=== PATIENT | female | born 1990 | race Caucasian/White ===

== ENCOUNTER 2016-10-31 14:57 | Emergency (ER) | payer SELFPAY ==
[~2016-10-31] VITALS: Ht 170.2 cm; Wt 113.4 kg
--- NOTE | 2016-10-31 15:13 | ED Lower Extremity ---
General Chief Complaint: Lower Extremity Stated Complaint: FALL/RIGHT ANKLE INJURY Source: patient Exam Limitations: no limitations History of Present Illness Time seen by provider: 15:11 Initial Comments To ER with pain over the right lateral malleolus of the ankle that began about one hour ago when she was walking down the stairs wearing flip-flops he inverted the right ankle or popping sensation and has pain and swelling. No other injuries. Onset: just prior to arrival Severity: moderate Pain/Injury Location: right ankle Method of Injury: unknown, twisted Modifying Factors: Worse With Movement Allergies and Home Medications Home Medications Fluoxetine HCl 40 Mg Capsule, 40 MG PO DAILY, (Reported) Metformin HCl 500 Mg Tablet, 500 MG PO DAILY, (Reported) [ Control] , Unknown Dose PO DAILY, (Reported) Constitutional: see HPI EENTM: see HPI Respiratory: no symptoms reported Cardiovascular: no symptoms reported Genitourinary: no symptoms reported Musculoskeletal: see HPI Skin: no symptoms reported Psychiatric/Neurological: No Symptoms Reported Past Hzcwjth-Xjvzhv-Yqxgbz Hx Patient Social History Recent Foreign Travel: No Contact w/Someone Who Travel: No Physical Exam Vital Signs Vital Sign - Last 12Hours 10/31/16 15:05 Temp 98.3 Pulse 71 Resp 18 B/P (MAP) 138/63 Pulse Ox 100 Capillary Refill : General Appearance: WD/WN, no apparent distress HEENT: PERRL/EOMI, normal ENT inspection Neck: non-tender, full range of motion Respiratory: no respiratory distress, no accessory muscle use Gastrointestinal: non tender, soft Hips: bilateral hip non-tender, bilateral hip normal inspection, bilateral hip normal range of motion Legs: bilateral leg non-tender, bilateral leg normal inspection, bilateral leg normal range of motion Knees: bilateral knee non-tender, bilateral knee normal inspection, bilateral knee normal range of motion Ankles: right ankle pain, right ankle soft tissue tenderness, right ankle swelling, right ankle other (pain and swelling over the lateral malleolus) Feet: bilateral foot non-tender, bilateral foot normal inspection, bilateral foot normal range of motion Neurologic/Psychiatric: alert, normal mood/affect, oriented x 3 Skin: normal color, warm/dry Progress/Results/Core Measures Results/Orders My Orders Orders - SUZANNE SOLORIO APRN Ankle, Right, 3 Views (10/31/16 15:09) Vital Signs/I&O Vital Sign - Last 12Hours 10/31/16 15:05 Temp 98.3 Pulse 71 Resp 18 B/P (MAP) 138/63 Pulse Ox 100 Diagnostic Imaging Diagonstic Imaging: Xray Comments NAME: CARLOS ESQUIVEL [facility] REC#: [id number] PT STATUS: REG ER : 1990 PHYSICIAN: SUZANNE SOLORIO APRN ADMIT DATE: 10/31/16/ER Draft Date of Exam:10/31/16 ANKLE, RIGHT, 3 VIEWS INDICATION: Tripped. Pain. EXAMINATION: Multiple views of the right ankle were obtained. FINDINGS: There is marked swelling over the lateral malleolus. There is question of a tiny avulsion injury along the talus or the talofibular ligament. No evidence of fibular fracture. Ankle mortise is in good alignment. Medial malleolus appears normal. Talar plafond show smooth surface. IMPRESSION: Marked soft tissue swelling, laterally, with question of avulsion of the talofibular ligament. Dictated on workstation # [id number] Dict: 10/31/16 1523 Trans: 10/31/16 1528 [facility] [phone] Interpreted by: DEVEN MOREIRA MD Electronically signed by: Departure Impression Impression: Primary Impression: Disorder of ligament, right ankle Disposition: 01 HOME, SELF-CARE Condition: Stable Departure-Patient Inst. Decision time for Depature: 15:31 Referrals: HAILEE MCCLELLAN MD, DAVID G Chelsea [facility] (PCP/Family) Primary Care Physician MOHSEN CHAVIS MD,VALENTINO LAUREANO,DM OVERTON MD DO Patient Instructions: Ankle Sprain (DC) Add. Discharge Instructions: 1. Wear the ankle brace when you're up moving around 2. Call an orthopedic surgeon of your choosing on Thursday for a follow-up appointment 3. Keep the ankle elevated as much as possible for the next 48 hours. Keep an ice pack on the right ankle for 30 minutes every 2 hours for the next 48 hours at least as much as you can. If you have pain when bearing weight on the right ankle, use the crutches when walking 4. Tylenol and Motrin for pain in addition to the prescribed pain medication. All discharge instructions reviewed with patient and/or family. Voiced understanding. Scripts Hydrocodone/Acetaminophen ([place] 5-325 Tablet) 1 Each Tablet 1 EACH PO Q4H Y for PAIN-MODERATE, #10 TAB Prov: SUZANNE SOLORIO APRN 10/31/16 SUZANNE SOLORIO APRN Oct 31, 2016 15:13
[2016-10-31] MEDS ORDERED: BIRTH CONTROL PO (15:17)
[2016-10-31] MEDS ORDERED: FLUO40CA12 PO (15:17)
[2016-10-31] MEDS ORDERED: METF500T4 PO (15:17)
--- NOTE | 2016-10-31 15:29 | Diagnostic Imaging Report ---
INDICATION: Tripped. Pain. EXAMINATION: Multiple views of the right ankle were obtained. FINDINGS: There is marked swelling over the lateral malleolus. There is question of a tiny avulsion injury along the talus or the talofibular ligament. No evidence of fibular fracture. Ankle mortise is in good alignment. Medial malleolus appears normal. Talar plafond show smooth surface. IMPRESSION: Marked soft tissue swelling, laterally, with question of avulsion of the talofibular ligament. Dictated by: Dictated on workstation # [id number]
[2016-10-31] MEDS ORDERED: HYDR-757 PO (15:33)
[2016-10-31 15:55] VITALS: BP 138/63
== END 2016-10-31 15:55 | disposition home or self-care (01) ==
LOC: EDUNIT# 14:57 → ER 15:01
DX: S93.401A Sprain of unspecified ligament of right ankle, initial encounter (principal); X50.9XXA Other and unspecified overexertion or strenuous movements or postures, initial encounter; Y92.009 Unspecified place in unspecified non-institutional (private) residence as the place of occurrence of the external cause; Y99.8 Other external cause status
CPT/HCPCS: 73610; 99283

== ENCOUNTER 2017-01-11 12:26 | Emergency (ER) | payer SELFPAY ==
[~2017-01-11] VITALS: Ht 170.2 cm; Wt 113.4 kg
[~2017-01-11 12:26] MED LIST changes: -DOXY100C2 PO; -METR500T PO; -[UNRECOGNIZED DRUG - OTHER] PO
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
[2017-01-11] MEDS ORDERED: LIDOCAINE 1% INJ 20 ML (XYLOCAINE) VIAL INJ ONE (13:00)
[2017-01-11] MEDS ORDERED: cefTRIAXone 1 GM (ROCEPHIN) VIAL IM ONE (13:00)
[2017-01-11] MEDS ORDERED: DOXY100C2 PO (13:04)
[2017-01-11] MEDS ORDERED: AZITHROMYCIN 250 MG TAB (ZITHROMAX) PO ONE (13:08)
[2017-01-11] MEDS ORDERED: DOXYCYCLINE 100 MG (VIBRAMYCIN) TABLET PO SCH (13:15)
[2017-01-11 13:28] VITALS: BP 145/72
[2017-01-12] MEDS ORDERED: AZITHROMYCIN 250 MG TAB (ZITHROMAX) PO SCH (09:00)
--- OUTSIDE RECORDS SUMMARY | 2017-01-14 13:24 | XMS REPORT ---
Author Author MARGARETTE HILL [facility] eClinicalWorks Address Unknown Phone Unavailable Care Team Providers Care Test Desk Supervisor Name Role Phone MARGARETTE HILL Unavailable Allergies, Adverse Reactions, Alerts Substance Reaction Event Type Rocephin Info Not Available Drug Allergy Cephalexin Info Not Available Drug Allergy Vancomycin Info Not Available Drug Allergy Problems Problem Type Condition Code Onset Dates Condition Status Assessment History of insulin resistance Z86.39 Active Assessment Unprotected sexual intercourse Z72.51 Active Assessment Surveillance of contraceptive pill Z30.41 Active Assessment History of abnormal cervical Pap smear Z87.898 Active Assessment Acute pharyngitis, unspecified J02.9 Active Problem Irregular menses N92.6 Active Problem Surveillance of contraceptive pill Z30.41 Active Problem Obesity, unspecified E66.9 Active Assessment Vaginal discharge N89.8 Active Assessment Routine screening for STI (sexually transmitted infection) Z11.3 Active Problem History of insulin resistance Z86.39 Active Assessment Well woman exam Z01.419 Active Medications Medication Code System Code Instructions Start Date End Date Status Dosage Apri [facility] [address]-78 0.15-30 MG-MCG Orally Once a day 1 tablet metformin NDC 0 500 mg orally Once a day October 09, 2014 take 1 tablet by Oral route 1 time per day citalopram NDC 0 20 mg September 29, 2014 1 tablet by Oral route 1 time per day Procedures Procedure Coding System Code Date TRICHOMONAS VAGIN, DIR PROBE CPT-4 98513 Jun 20, 2015 CULTURE, BACTERIA, OTHER CPT-4 32104 Jun 20, 2015 No Charge CPT-4 19822 Jun 20, 2015 STREP A ASSAY W/OPTIC CPT-4 64621 Jun 20, 2015 URINE TEST CPT-4 03548 Jun 20, 2015 Preventive Care Est Pt. Age 18-39 CPT-4 54263 Jun 20, 2015 Vital Signs Date/Time: Jun 20, 2015 Temperature 98.1 F Weight 242.0 lbs Height 67 in BMI 37.90 Index Blood Pressure Diastolic 68 mmHg Blood Pressure Systolic 112 mmHg Cardiac Monitoring Heart Rate 76 bpm Results Name Result Date Reference Range Unit Abnormality Flag TEST, URINE (IN HOUSE) ----RESULTS negative [id number] ----Lot # [id number] ----Control + [id number] ----Exp date 20150620 STREP A (IN HOUSE) ----Exp date 20150620 ----Control + [id number] ----Lot # [id number] ----STREP A Negative [id number] Summary Purpose eClinicalWorks Submission
--- OUTSIDE RECORDS SUMMARY | 2017-01-14 13:24 | XMS REPORT ---
Author Author RENEE WILLETT Organization eClinicalWorks Address Unknown Phone Unavailable Care Team Providers Care Bulbs Farmworker Name Role Phone RENEE WILLETT CP Unavailable Allergies No Known Allergies Problems Problem Type Condition Code Onset Dates Condition Status Problem Irregular menses N92.6 Active Problem Surveillance of contraceptive pill Z30.41 Active Problem Obesity, unspecified E66.9 Active Problem History of insulin resistance Z86.39 Active Medications No Known Medications Results No Known Results Summary Purpose eClinicalWorks Submission
--- OUTSIDE RECORDS SUMMARY | 2017-01-14 13:24 | XMS REPORT ---
Author Author SANTOS CHAVES eClinical[employer] Address Unknown Phone Unavailable Care Team Providers Care Alumni Relations Manager Name Role Phone SANTOS CHAVES CP Unavailable Allergies, Adverse Reactions, Alerts Substance Reaction Event Type Rocephin Info Not Available Drug Allergy Cephalexin Info Not Available Drug Allergy Vancomycin Info Not Available Drug Allergy Problems Problem Type Condition Code Onset Dates Condition Status Assessment History of chlamydia Z86.19 Active Problem Irregular menses N92.6 Active Problem Surveillance of contraceptive pill Z30.41 Active Problem Obesity, unspecified E66.9 Active Assessment History of insulin resistance Z86.39 Active Assessment Abnormal cervical Papanicolaou smear, unspecified abnormal pap finding R87.619 Active Problem History of insulin resistance Z86.39 Active Assessment Surveillance of contraceptive pill Z30.41 Active Medications Medication Code System Code Instructions Start Date End Date Status Dosage Apri [facility] [address]-62 0.15-30 MG-MCG Orally Once a day 1 tablet MetFORMIN HCl ER [facility] [address]-11 500 MG Orally Once a day November 02, 2015 1 tablet with evening meal citalopram NDC 0 20 mg September 29, 2014 1 tablet by Oral route 1 time per day Procedures Procedure Coding System Code Date No Charge CPT-4 34677 November 02, 2015 TRICHOMONAS ASSAY W/OPTIC CPT-4 74276 November 02, 2015 SPECIMEN HANDLING CPT-4 46643 November 02, 2015 URINE TEST CPT-4 00654 November 02, 2015 Office Visit, Est Pt., Level 3 CPT-4 70175 November 02, 2015 Vital Signs Date/Time: November 02, 2015 Temperature 98.3 F Weight 241.9 lbs Height 67 in BMI 37.88 Index Blood Pressure Diastolic 75 mmHg Blood Pressure Systolic 114 mmHg Cardiac Monitoring Heart Rate 72 bpm Results Name Result Date Reference Range Unit Abnormality Flag TEST, URINE (IN HOUSE) ----RESULTS Negative [id number] ----Lot # [id number] ----Control + 20151102 ----Exp date 20151102 TRICHOMONAS (IN HOUSE) ----Exp date 20151102 ----Control + [id number] ----Lot # [id number] ----TRICHOMONAS Negative [id number] Summary Purpose eClinicalWorks Submission
--- OUTSIDE RECORDS SUMMARY | 2017-01-14 13:24 | XMS REPORT ---
Author Author SANTOS CHAVES [facility] eClinicalWorks Address Unknown Phone Unavailable Care Team Providers Care Trouble Locater Name Role Phone SANTOS CHAVES CP Unavailable Allergies, Adverse Reactions, Alerts Substance Reaction Event Type Rocephin Info Not Available Drug Allergy Cephalexin Info Not Available Drug Allergy Vancomycin Info Not Available Drug Allergy Problems Problem Type Condition Code Onset Dates Condition Status Problem Other abnormal Papanicolaou smear of vagina and vaginal HPV 795.19 Active Problem Obesity, unspecified 278.00 Active Problem Routine general medical examination at health care facility V70.0 Active Problem Irregular menstrual cycle 626.4 Active Assessment Nose injury, initial encounter S09.92XA Active Medications Medication Code System Code Instructions Start Date End Date Status Dosage Enskyce NDC [address]-82 0.15-30 MG-MCG Orally Once a day 1 tablet citalopram NDC 0 20 mg September 29, 2014 1 tablet by Oral route 1 time per day metformin NDC 0 500 mg October 09, 2014 take 1 tablet by Oral route 1 time per day Procedures Procedure Coding System Code Date Office Visit, Est Pt., Level 3 CPT-4 92669 May 30, 2015 Vital Signs Date/Time: May 30, 2015 Temperature 98.6 F Weight 237.7 lbs Height 67 in BMI 37.23 Index Blood Pressure Diastolic 74 mmHg Blood Pressure Systolic 118 mmHg Cardiac Monitoring Heart Rate 72 bpm Results No Known Results Summary Purpose eClinicalWorks Submission
--- OUTSIDE RECORDS SUMMARY | 2017-01-14 13:24 | XMS REPORT ---
Author Author MARGARETTE HILL [facility] eClinicalWorks Address Unknown Phone Unavailable Care Team Providers Care Electromechanisms Design Drafter Name Role Phone MARGARETTE HILL Unavailable Allergies No Known Allergies Problems Problem Type Condition Code Onset Dates Condition Status Problem Irregular menses N92.6 Active Problem Surveillance of contraceptive pill Z30.41 Active Problem Obesity, unspecified E66.9 Active Problem History of insulin resistance Z86.39 Active Medications No Known Medications Results No Known Results Summary Purpose eClinicalWorks Submission
--- OUTSIDE RECORDS SUMMARY | 2017-01-14 13:24 | XMS REPORT ---
Author Author MARGARETTE HILL [facility] eClinicalWorks Address Unknown Phone Unavailable Care Team Providers Care Director Banking Name Role Phone MARGARETTE HILL Unavailable Allergies No Known Allergies Problems Problem Type Condition Code Onset Dates Condition Status Problem Irregular menses N92.6 Active Problem Surveillance of contraceptive pill Z30.41 Active Problem Obesity, unspecified E66.9 Active Problem History of insulin resistance Z86.39 Active Medications No Known Medications Results No Known Results Summary Purpose eClinicalWorks Submission
== END 2017-01-11 13:28 | disposition home or self-care (01) ==
LOC: EDUNIT# 12:26 → ER 12:28
DX: S31.839A Unspecified open wound of anus, initial encounter (principal); T76.21XA Adult sexual abuse, suspected, initial encounter; M79.89 Other specified soft tissue disorders; Z87.39 Personal history of other diseases of the musculoskeletal system and connective tissue; Z86.39 Personal history of other endocrine, nutritional and metabolic disease; Z79.84 Long term (current) use of oral hypoglycemic drugs
CPT/HCPCS: 36415; 87070; 87210; 87491; 87591; 99284

== ENCOUNTER → 2017-01-11 | Outpatient (CLI) | payer SELFPAY ==
[~2017-01-11] MED LIST: BIRTH CONTROL PO; DOXY100C2 PO; FLUO40CA12 PO; HYDR-757 PO; METF500T4 PO; METR500T PO; [UNRECOGNIZED DRUG - OTHER] PO
[2017-01-11 13:53] VITALS: BP 132/84
== END ==
LOC: FNS 13:48
PROVIDERS: ATTEND Emergency Medicine
DX: Z02.89 Encounter for other administrative examinations (principal)